=== PATIENT | female | born 2000 | race African-American/Black ===

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

== ENCOUNTER 2020-11-17 18:51 | Emergency (ER) | payer OTHER ==
[~2020-11-17 18:51] MED LIST: METR-34 PO
== END 2020-11-17 20:18 | disposition left against medical advice (07) ==
LOC: ER 18:51
DX: Z48.00 Encounter for change or removal of nonsurgical wound dressing (principal); Z53.21 Procedure and treatment not carried out due to patient leaving prior to being seen by health care provider

== ENCOUNTER 2021-07-25 09:08 | Emergency (ER) | payer OTHER ==
[~2021-07-25] VITALS: Ht 165.1 cm; Wt 63.0 kg
[2021-07-25 09:53] VITALS: BP 120/70
[2021-07-25] MEDS ORDERED: cefTRIAXone IM 500 MG VIAL. IM ONE (10:30)
--- NOTE | 2021-07-25 10:42 | PHYS DOC ---
Past Medical History Past Medical History: No Pertinent History Past Surgical History: No Surgical History Smoking Status: Never Smoker Alcohol Use: None Drug Use: Marijuana General Adult EDM: Chief Complaint: SEXUALLY TRANSMITTED DISEASE HPI: HPI: Patient is a 21 year old female who presents with here for an STD check. She states she was treated in June with the health department for STDs. She states then she had a new partner and he told her that he had an STD but she is unsure of what it was. She states she went back to the department but they refused to treat her prophylactically. Currently having no symptoms. Denies abdominal pain, nausea, vomiting, diarrhea, vaginal pain, vaginal sores, vaginal discharge, urinary symptoms, back pain, fever. Review of Systems: Review of Systems: Constitutional: Denies fever or chills. [] Eyes: Denies change in visual acuity. [] HENT: Denies nasal congestion or sore throat. [] Respiratory: Denies cough or shortness of breath. [] Cardiovascular: Denies chest pain or edema. [] GI: Denies abdominal pain, nausea, vomiting, bloody stools or diarrhea. [] : Denies dysuria. + STD exposure [] Musculoskeletal: Denies back pain or joint pain. [] Integument: Denies rash. [] Neurologic: Denies headache, focal weakness or sensory changes. [] Endocrine: Denies polyuria or polydipsia. [] Lymphatic: Denies swollen glands. [] Psychiatric: Denies depression or anxiety. [] Heart Score: C/O Chest Pain: No Current Medications: Current Medications Medications (Trade) Dose Ordered Sig/[facility] Start Time Stop Time Status Last Admin Dose Admin Ceftriaxone Sodium (Rocephin Im) 500 mg 1X ONCE 07/25/21 10:30 07/25/21 10:31 DC 07/25/21 10:32 500 MG Allergies: Allergies: Allergies Coded Allergies Type Severity Reaction Last Updated Verified No Known Drug Allergies 03/19/16 No Physical Exam: PE: Constitutional: Well developed, well nourished, no acute distress, non-toxic appearance. [] HENT: Normocephalic, atraumatic, bilateral external ears normal, oropharynx moist, no oral exudates, nose normal. [] Eyes: PERRLA, EOMI, conjunctiva normal, no discharge. [] Neck: Normal range of motion, no tenderness, supple, no stridor. [] Cardiovascular:Heart rate regular rhythm, no murmur [] Lungs & Thorax: Bilateral breath sounds clear to auscultation [] Abdomen: Bowel sounds normal, soft, no tenderness, no masses, no pulsatile masses. [] Skin: Warm, dry, no erythema, no rash. [] Back: No tenderness, no CVA tenderness. [] Extremities: No tenderness, no cyanosis, no clubbing, ROM intact, no edema. [] Neurologic: Alert and oriented X 3, normal motor function, normal sensory fu nction, no focal deficits noted. [] Psychologic: Affect normal, judgement normal, mood normal. [] Normal physical exam Current Patient Data: Labs: Laboratory Tests Test 07/25/21 10:04 POC Urine HCG, Qualitative Hcg negative (Negative) Vital Signs: Vital Signs Date Time Temp Pulse Resp B/P (MAP) Pulse Ox O2 Delivery O2 Flow Rate FiO2 07/25/21 09:53 98.0 86 20 120/70 (87) 98 98.0 EKG: EKG: [] Radiology/Procedures: Radiology/Procedures: [] Course & Med Decision Making: Course & Med Decision Making Pertinent Labs and Imaging studies reviewed. (See chart for details) See HPI. Alert and orient x4. Ambulatory steady gait. Skin pink warm and dry. Negative test. Patient will be treated for STD prophylaxis. She self swabbed. Patient is given Rocephin in ED and she will be given a prescription for doxycycline. Abdomen soft and nontender. Vital signs within normal limits. Urinalysis and wet prep came back negative. She will be given a prescription for doxycycline and follow-up with a spareribs trimmer. [] Cuong Disclaimer: Cuong Disclaimer: This electronic medical record was generated, in whole or in part, using a voice recognition dictation system. Departure Departure Impression: Primary Impression: Concern about STD in female without diagnosis Disposition: 01 HOME / SELF CARE / HOMELESS Condition: STABLE Referrals: NO PCP (PCP) Patient Instructions: Sexually Transmitted Disease Additional Instructions: Follow-up with gynecology doctor of your choosing if needed. Take medication as prescribed and with food. Do not have sexual intercourse for 10 days after you finish the antibiotic. Have all partners treated. Scripts Doxycycline Hyclate (DOXYCYCLINE HYCLATE) 100 Mg Capsule 1 CAP PO BID, #14 CAP Prov: BAFUS,LEONID M ART APPRAISER 07/25/21 LEONID SONI APRN July 25, 2021 10:42
[2021-07-25] MEDS ORDERED: DOXY100C3 PO (10:58)
[2021-07-25 11:11] LABS: BACTERIA,URINE 0 /HPF (0-FEW); TRICHOMONAS,URINE PRESENT; WBC,URINE 20-40 /HPF (0-4)
[2021-07-27 06:25] LABS: GC PROBE Negative (Negative)
== END 2021-07-25 11:03 | disposition home or self-care (01) ==
LOC: ER 09:08
DX: Z20.2 Contact with and (suspected) exposure to infections with a predominantly sexual mode of transmission (principal)
CPT/HCPCS: 81001; 81025; 87086; 87147; 87491; 87591; 96372; 99283; J0696; Q0111